=== PATIENT | female | born 1930 | race Caucasian/White ===

== ENCOUNTER → 2016-04-13 | Outpatient (CLI) | payer OTHER ==
--- NOTE | 2016-04-13 21:26 | MA ---
Digital Screening Mammogram Bilateral 04/13/2016 9:45 Comparison: February 2015, December 2013, and August 2012. History: Screening. Personal history of right breast cancer in 2010, status post lumpectomy. Family h istory of breast cancer in sister in her 60s. Technique: Standard digital cephalocaudal and mediolateral oblique projections are obtained. This e xamination is processed by the [employer] computer-aided detection system. Findings: Standard views of both breasts demonstrate scattered fibroglandular tissue, breast B (25-50 %). Architectural distortion is seen in the right breast at the site of prior lumpectomy, stable in a ppearance. Stable parenchymal pattern bilaterally. A few benign-appearing calcifications are seen sarah aterally. Benign-appearing nodule is seen laterally in the left breast, stable in appearance, likely representing a benign lymph node. IMPRESSION: Benign. BI-RADS 2. Recommendation: Screening mammogram in one year. [facility] will send a result letter to the patient. Negative mammography should not preclude additional workup of a clinically suspicious finding. The patient's information is entered into a reminder system with a target due date for her next mammo gram.
== END ==
LOC: FIMAGING 09:39
DX: Z12.31 Encounter for screening mammogram for malignant neoplasm of breast (principal); Z85.3 Personal history of malignant neoplasm of breast; Z80.3 Family history of malignant neoplasm of breast
CPT/HCPCS: G0202

== ENCOUNTER → 2017-05-03 | Outpatient (CLI) | payer OTHER | LOC: FIMAGING 08:23 | PROVIDERS: ATTEND Surgery | DX: Z12.31 Encounter for screening mammogram for malignant neoplasm of breast (principal); Z85.3 Personal history of malignant neoplasm of breast ==

== ENCOUNTER → 2018-06-26 | Outpatient (CLI) | payer OTHER | LOC: FIMAGING 08:36 | PROVIDERS: ATTEND Internal Medicine | DX: Z12.31 Encounter for screening mammogram for malignant neoplasm of breast (principal); Z85.3 Personal history of malignant neoplasm of breast ==